=== PATIENT | female | born 1985 | race Caucasian/White ===

== ENCOUNTER 2017-01-29 14:04 | Outpatient (CLI) | payer OTHER ==
[2017-01-29 18:11] LABS: BILIRUBIN,URINE NEGATIVE (NEGATIVE)
[2017-01-29 18:42] LABS: BASOPHILS % (AUTO) 0.3 %; EOSINOPHILS # (AUTO) 0.1 10^3/uL (0.0-0.7); EOSINOPHILS % (AUTO) 1.2 %; HCT - HEMATOCRIT 35.8 % (37.0-47.0); HGB - HEMOGLOBIN 12.3 g/dL (12.0-16.0); LYMPHOCYTES # (AUTO) 1.2 10^3/uL (1.5-3.5); LYMPHOCYTES % (AUTO) 17.7 %; MEAN CORPUSCULAR HEMOGLOBIN 29.5 pg (27.0-31.0); MEAN CORPUSCULAR HGB CONC 34.4 g/dL (32.0-36.0); MEAN CORPUSCULAR VOLUME 85.7 fL (81.0-99.0); MEAN PLATELET VOLUME 8.9 fL (7.9-10.8); MONOCYTES # (AUTO) 0.5 10^3/uL (0.0-1.0); NEUTROPHILS # (AUTO) 5.2 10^3/uL (1.5-6.6); NEUTROPHILS % (AUTO) 73.8 %; RED BLOOD COUNT 4.17 10^6/uL (4.20-5.40); RED CELL DISTRIBUTION WIDTH 12.3 % (12.0-15.0)
[2017-01-29 18:53] LABS: WBC,URINE 0-3 /HPF (0-5)
[2017-01-30 04:01] LABS: TEST RESULT REPORT
== END 2017-01-29 14:05 | disposition home or self-care (01) ==
LOC: LAB.F 14:04
PROVIDERS: ATTEND Obstetrics & Gynecology
DX: Z36.9 Encounter for antenatal screening, unspecified (principal); Z11.3 Encounter for screening for infections with a predominantly sexual mode of transmission
CPT/HCPCS: 36415; 81001; 81599; 85025; 86592; 86762; 86850; 86900; 86901; 87340; 87389; 87491; 87591

== ENCOUNTER 2017-02-23 11:48 | Outpatient (CLI) | payer SELFPAY | END 2017-02-23 11:49 | disposition home or self-care (01) | LOC: LAB 11:48 | DX: Z13.79 Encounter for other screening for genetic and chromosomal anomalies (principal) | CPT/HCPCS: 36415 ==

== ENCOUNTER 2017-04-19 12:13 | Outpatient (CLI) | payer BC, OTHER ==
--- NOTE | 2017-04-20 09:09 | Ultrasound Report ---
OB ULTRASOUND: 04/19/2017 CLINICAL INDICATION: anatomy. TECHNIQUE: Real-time scanning was performed with key account representative static images obtained. LAST MENSTRUAL PERIOD: Clinical Age: US Age: EFW Hadlock: EFW% Hadlock: Heart Rate: EDC: US EDC: BPD Hadlock: HC Hadlock: AC Hadlock: FL Hadlock: Presentation: Placental Location: Cervical Length: Amniotic Fluid: 11/27/2016 20 weeks 3 days 20weeks 5 days 368 grams 57 152 bpm 09/03/2017 09/01/2017 21 weeks 1 day Mean mm 50.2 20 weeks 4 days Mean mm 182.1 20 weeks 5 days Mean mm 155.0 20 weeks 4 days Mean mm 33.7 variable posterior 3.2 cm Subjectively normal FINDINGS: There is a single viable intrauterine gestation, in variable position. heart rate is 152 BPM. The placenta is posterior. There is a marginal cord insertion into the placenta. This should be followed up in the third trimester. No previa or abruption is identified. Amniotic fluid volume is subjectively normal, with the deepest pocket of 4.1 cm. By size, the fetus measures 20 weeks 5 days (20 weeks 3 days per dating on the order). The following anatomic structures were visualized and appear normal: The intracranial contents, including the ventricles and posterior fossa; the lips and orbits; the spine; the heart, including 4 chamber view and outflow tracts, and diaphragm; the abdominal contents, including the stomach, the bilateral kidneys, and urinary bladder, as well as a normal 3 vessel cord insertion; 4 limbs. No free fluid or adnexal lesion is appreciated. IMPRESSION: SINGLE VIABLE INTRAUTERINE GESTATION, WITH SIZE IN KEEPING WITH DATING PROVIDED ON THE ORDER. NORMAL ANATOMIC SURVEY. MARGINAL CORD INSERTION INTO THE PLACENTA. THIS SHOULD BE REEVALUATED IN THE THIRD TRIMESTER. MTDD
== END 2017-04-19 12:14 | disposition home or self-care (01) ==
LOC: DI 12:13
PROVIDERS: ATTEND Obstetrics & Gynecology
DX: Z36.9 Encounter for antenatal screening, unspecified (principal)
CPT/HCPCS: 76811

== ENCOUNTER 2017-05-25 09:25 | Outpatient (CLI) | payer BC ==
[2017-05-25 10:53] LABS: HGB - HEMOGLOBIN 11.1 g/dL (12.0-16.0); MEAN CORPUSCULAR HEMOGLOBIN 30.7 pg (27.0-31.0); MEAN CORPUSCULAR HGB CONC 35.6 g/dL (32.0-36.0); MEAN CORPUSCULAR VOLUME 86.3 fL (81.0-99.0); MEAN PLATELET VOLUME 7.9 fL (7.9-10.8); RED BLOOD COUNT 3.63 10^6/uL (4.20-5.40); RED CELL DISTRIBUTION WIDTH 13.3 % (12.0-15.0); WHITE BLOOD COUNT 8.8 x10^3/uL (4.8-10.8)
== END 2017-05-25 09:26 | disposition home or self-care (01) ==
LOC: LAB 09:25
PROVIDERS: ATTEND Obstetrics & Gynecology
DX: Z34.90 Encounter for supervision of normal pregnancy, unspecified, unspecified trimester (principal)
CPT/HCPCS: 36415; 82950; 86850

== ENCOUNTER 2017-06-08 08:20 | Outpatient (CLI) | payer BC ==
--- NOTE | 2017-06-09 16:07 | Ultrasound Report ---
OB FOLLOWUP: 06/08/2017 CLINICAL INDICATION: Check cord insertion into placenta and growth. TECHNIQUE: Real-time scanning was performed with guest services representative static images obtained. LAST MENSTRUAL PERIOD: 11/27/2016 Clinical Age: 27 weeks 4 days US Age: 28 weeks 6 days EFW Hadlock: 1250 grams EFW% Hadlock: 66% Heart Rate: 142 bpm EDC: 09/03/2017 US EDC: 08/25/2017 BPD Hadlock: 30 weeks 2 days; Mean mm 75 HC Hadlock: 28 weeks 0 days; Mean mm 270 AC Hadlock: 29 weeks 0 days; Mean mm 247 FL Hadlock: 27 weeks 2 days; Mean mm 50 Presentation: gavino breech Placental Location: posterior/fundal Cervical Length: 4.0 cm Amniotic Fluid: JORGE 21.0 cm; MVP 6.1 cm FINDINGS: There is a single viable intrauterine gestation, in breech presentation. heart rate is 142 BPM. The placenta is posterior to fundal. Previously seen marginal cord insertion has resolved. Amniotic fluid volume is normal, with an JORGE of 21.0. By size, the fetus measures 28 weeks 6 days (27 weeks 4 days by office dating). Estimated weight by Hadlock method is 1250 grams. No free fluid or adnexal lesion is identified. IMPRESSION: SINGLE VIABLE INTRAUTERINE GESTATION, WITH EXPECTED GROWTH. RESOLUTION OF PREVIOUSLY SEEN MARGINAL CORD INSERTION. TD: 06/08/2017 10:20 MTDD
== END 2017-06-08 08:21 | disposition home or self-care (01) ==
LOC: DI 08:20
PROVIDERS: ATTEND Obstetrics & Gynecology
DX: Z36.2 Encounter for other antenatal screening follow-up (principal); Z3A.28 28 weeks gestation of pregnancy
CPT/HCPCS: 76816

== ENCOUNTER 2017-08-03 08:00 | Outpatient (CLI) | payer BC | END 2017-08-03 08:01 | disposition home or self-care (01) | LOC: LAB.R 08:00 | PROVIDERS: ATTEND Obstetrics & Gynecology | DX: Z36.9 Encounter for antenatal screening, unspecified (principal) | CPT/HCPCS: 87077; 87081 ==

== ENCOUNTER 2017-08-26 10:55 | Inpatient (IN) | payer BC ==
[2017-08-26] MEDS ORDERED: fentaNYL 100 MCG/2 ML VIAL IVP PRN (18:22)
[2017-08-26] MEDS ORDERED: PENICILLIN G POTASSIUM 5,000,000 UNIT in SODIUM CHLORIDE 0.9% MINIBAG 100 ML IV ONE (18:22)
[2017-08-26] MEDS ORDERED: ONDANSETRON 4 MG/2 ML VIAL IVP PRN ×2 (18:22→23:35)
--- NOTE | 2017-08-26 18:43 | PROVIDER PROGRESS NOTE ---
Labor Progress Note - Uterine Monitoring Uterine Monitoring Mode: positive: Palpation Contraction Frequency (min/apart): q3mn Contraction Intensity: positive: Mild to moderate Uterine Resting Tone: positive: Soft - Monitoring Monitor Mode: positive: External ultrasound Heart Rate Baseline: 125-130 Heart Rate Variability: positive: Moderate (6-25 bmp) Accelerations: positive: Present, 15x15 Decelerations: positive: None Strip Review: positive: Category I - Vaginal Exam Dilation (in cm): 5 Effacement (%): 90% Station: 0 Cervical Position: Anterior - Labor Progress Note Labor Progress Note/Additional Text: Patient is a term primigravida who is making forward progress with both dilation and descent. External monitor tracking is category 1. Anticipate pelvis to be adequate for size of fetus. Patient will require GBS prophylaxis.
[2017-08-26] MEDS: LACTATED RINGERS 1,000 ML IV SCH ×3 (19:00→22:13)
[2017-08-26] MEDS ORDERED: ACETAMINOPHEN 325 MG TABLET PO SCH (19:00)
[2017-08-26 19:08] LABS: BASOPHILS % (AUTO) 0.3 %; EOSINOPHILS % (AUTO) 0.7 %; HGB - HEMOGLOBIN 13.5 g/dL (12.0-16.0); LYMPHOCYTES % (AUTO) 12.6 %; MEAN CORPUSCULAR HEMOGLOBIN 29.4 pg (27.0-31.0); MEAN CORPUSCULAR HGB CONC 33.4 g/dL (32.0-36.0); MEAN CORPUSCULAR VOLUME 88.1 fL (81.0-99.0); MEAN PLATELET VOLUME 9.3 fL (7.9-10.8); MONOCYTES % (AUTO) 7.9 %; NEUTROPHILS % (AUTO) 78.5 %; PLT - PLATELET COUNT 206 10^3/uL (130-450); RED BLOOD COUNT 4.59 10^6/uL (4.20-5.40); RED CELL DISTRIBUTION WIDTH 14.2 % (12.0-15.0); WHITE BLOOD COUNT 13.5 x10^3/uL (4.8-10.8)
[2017-08-26 19:09] LABS: ABNORMAL LYMPHS % (MANUAL) 0 %
[2017-08-26 19:23] LABS: BAND NEUTROPHILS % (MANUAL) 2 %; LYMPHOCYTES # (MANUAL) 1.9 10^3/uL (1.5-3.5); LYMPHOCYTES % (MANUAL) 14 %; MONOCYTES # (MANUAL) 0.8 10^3/uL (0.0-1.0); NEUTROPHILS # (MANUAL) 10.8 10^3/uL (1.5-6.6); NEUTROPHILS % (MANUAL) 78 %
[2017-08-26 19:24] LABS: DIFFERENTIAL COMMENT MANUAL DIFFERENTIAL; PLATELET ESTIMATE, MANUAL NORMAL (130-450,000) (NORMAL); PLATELET MORPHOLOGY NORMAL APPEARANCE (NORMAL); RBC MORPHOLOGY (MULTIPLE) 1+ POLYCHROMASIA (NORMAL)
--- NOTE | 2017-08-26 19:24 | HISTORY & PHYSICAL EXAMINATION ---
DATE OF SERVICE: 08/26/2017 Physician: Silas Stone MD DIAGNOSES 1. Term , 38 weeks 6 days. 2. Labor. 3. Group B streptococcus (GBS) maternal colonization. HISTORY OF PRESENT ILLNESS: The patient is a 31-year-old , 1, para 0-0-1-0 (EAB x1) woman, at 38 weeks 6 days gestation based on an EDC of 09/03/2017, calculated from an 4-asaw-8-day crown-rump length on 01/28/2017, which was consistent with the LMP of 11/23/2016. [facility] with a total [facility] 11 [facility]. During her care, the patient was thought to have a marginal cord insertion, but had a normal growth. The patient had [place] testing that showed a normal karyotype male fetus. Reference records. Basic labs showed blood type to be B-positive, antibody screen negative, GC and chlamydia negative, rubella immune, RPR negative, hepatitis B surface antigen negative, HIV negative, urinalysis negative. Glucola screen normal at 93, GBS positive. The patient reports uterine contractions beginning at 7:30 on 08/25/2017 without leakage of urine. Overtime, the contractions waxed and waned, but became more regular and intense by 10 a.m. today, 08/26/2017. This prompted the patient to come for evaluation. She does not believe she is leaking fluid. There are no signs or symptoms of preeclampsia. She has had no recent illness or fever. PAST MEDICAL HISTORY: Healthy. No chronic disease history. PAST SURGICAL HISTORY: Appendectomy in 2005. FAMILY HISTORY: No inheritable diseases or aneuploidy; positive for depression and hypertension. The patient does have a Christianity lineage. ALLERGIES: NONE. MEDICATIONS: vitamins and iron. SOCIAL HISTORY: Bachelor's degree. [employer] recreation facility manager. No drug, tobacco or alcohol use. REVIEW OF SYSTEMS CONSTITUTIONAL: Negative. CARDIOVASCULAR: Negative. PULMONARY: Negative. GASTROINTESTINAL: Negative. GENITOURINARY: Reference HPI and records; essentially normal. MUSCULOSKELETAL: Negative. DERMATOLOGIC: Negative. NEUROLOGIC: Negative. PSYCHIATRIC/PSYCHOLOGY: Normal. PHYSICAL EXAMINATION GENERAL: The patient is uncomfortable, sitting on a birthing ball. VITAL SIGNS: Temperature 98.4, pulse 98, blood pressure 102/65, respirations 18 , oxygen sat 98. HEENT: Nonicteric sclerae. EOMI. Dentition in good repair. NECK: Supple neck. No thyromegaly. LUNGS: Clear to auscultation. CARDIOVASCULAR: Regular. No murmur, no gallop. BREASTS: Deferred. No SBE findings reported. ABDOMEN: Nondistended. No hepatosplenomegaly. PELVIC: Uterus is appropriate for dates, with q.3-minute to 4-minute moderate contractions. Normal resting tone. No tenderness. Estimated weight at or about 7 to 7- 1/2 pounds. Vertex GENITALIA: External genitalia, no lesions. VAGINA: No blood or discharge. CERVIX: 5 cm, 100%, 0 station. Bag of kothari intact. HEART TONES: External heart tones, category 1, baseline 125-135, moderate variability, no decelerations. NEUROLOGIC: Grossly intact. Patellar reflexes 2+. LABORATORY DATA: Labs are pending. ASSESSMENT: The patient with a 61-tslm-5-day gestation, who is in labor and progressing towards the active phase. Her bag of kothari is intact. She will require penicillin prophylaxis for known group B streptococcus colonization. Overall impression is an adequate pelvis with a 7-pound fetus. No concerns about well being. PLAN 1. Continue supportive care. 2. Epidural. 3. Penicillin prophylaxis. 4. Anticipate vaginal delivery. TD: 08/26/2017 18:53 MTDD
[2017-08-26] MEDS ORDERED: fent/BUPIV 2 MCG/0.125% 250 ML EP ONE (19:29)
[2017-08-26] MEDS: SODIUM CHLORIDE FLUSH 0.9% 10 ML SYRINGE IVP PRN (19:55)
[2017-08-26] MEDS ORDERED: BUPIVACAINE 0.25% PF 10 ML VIAL ONE (19:55)
[2017-08-26] MEDS: SODIUM CHLORIDE FLUSH 0.9% 10 ML SYRINGE IVP SCH ×2 (20:03→23:38)
--- NOTE | 2017-08-26 22:46 | PROVIDER PROGRESS NOTE ---
Labor Progress Note - Uterine Monitoring Contraction Frequency (min/apart): q 4-5 min Contraction Intensity: positive: Mild Uterine Resting Tone: positive: Soft - Monitoring Monitor Mode: positive: External ultrasound Heart Rate Baseline: 130 Heart Rate Variability: positive: Moderate (6-25 bmp) Accelerations: positive: Present, 15x15 Decelerations: positive: None Strip Review: positive: Category I - Vaginal Exam Dilation (in cm): 6 Effacement (%): 90% Station: 0 Cervical Position: Anterior - Labor Progress Note Labor Progress Note/Additional Text: Radha is comfortable with epidural. Hydration has decreased contraction intensity & frequency. First dose of PCN in.
[2017-08-26] MEDS ORDERED: OXYTOCIN/SODIUM CHLORIDE 500 ML IV SCH (23:00)
[2017-08-26] MEDS ORDERED: NALBUPHINE 10 MG/ML AMP IVP PRN (23:35)
[2017-08-26] MEDS ORDERED: fent/BUPIV 2 MCG/0.125% 250 ML EP PRN (23:35)
[2017-08-26] MEDS ORDERED: LACTATED RINGERS 500 ML IV ONE (23:35)
[2017-08-26] MEDS ORDERED: NALOXONE 0.4 MG/ML VIAL IVP PRN (23:35)
[2017-08-26] MEDS ORDERED: ePHEDrine 50 MG/ML VIAL IVP PRN (23:35)
[2017-08-26] MEDS: OXYTOCIN/SODIUM CHLORIDE 500 ML IV SCH (23:37)
[2017-08-26] MEDS: PENICILLIN G POTASSIUM 2,500,000 UNIT in SODIUM CHLORIDE 0.9% 100ML 100 ML IV SCH (23:51)
[2017-08-27] MEDS: PENICILLIN G POTASSIUM 2,500,000 UNIT in SODIUM CHLORIDE 0.9% 100ML 100 ML IV SCH (03:58)
--- NOTE | 2017-08-27 05:10 | PROVIDER PROGRESS NOTE ---
Labor Progress Note - Uterine Monitoring Uterine Monitoring Mode: positive: External toco, IUPC Contraction Frequency (min/apart): q 4-5 min Contraction Intensity: positive: Mild Uterine Resting Tone: positive: Soft - Monitoring Monitor Mode: positive: External ultrasound Heart Rate Baseline: 130-135 Heart Rate Variability: positive: Moderate (6-25 bmp) Accelerations: positive: Present, 15x15 Decelerations: positive: Early Strip Review: positive: Category I - Vaginal Exam Dilation (in cm): 6 Effacement (%): 100% Station: 0 Cervical Position: Anterior - Labor Progress Note Labor Progress Note/Additional Text: The tempo & intensity of the contractions decreased and forward progression of dilatation & descent has slackened. Pitocin augmentation continues though at 3: 00 am the drip rate was decreased back to 1 because of concerns about variable decelerations. In my examination, the strip the variables are not worrisome. To allow more effective management of Pitocin IUPC was placed. Patient's pain relief remains adequate with epidural. I anticipate an increased rate of dilatation and descent. Clinically I believe the pelvis adequate for 7.5 pound infant fetus.
[2017-08-27] MEDS: LACTATED RINGERS 1,000 ML IV SCH ×3 (05:34→18:03)
--- NOTE | 2017-08-27 06:58 | PROVIDER PROGRESS NOTE ---
Labor Progress Note - Uterine Monitoring Uterine Monitoring Mode: positive: IUPC Contraction Frequency (min/apart): 3 min Contraction Intensity: positive: Mild to moderate Uterine Resting Tone: positive: Soft Other Uterine Monitoring: inadequate w 2.5 m units - Monitoring Heart Rate Baseline: 130 Heart Rate Variability: positive: Moderate (6-25 bmp) Accelerations: positive: Present, 10x10 (=/32 wks) Decelerations: positive: None Strip Review: positive: Category I - Vaginal Exam Dilation (in cm): 9 cm Effacement (%): 100% Station: 1 Cervical Position: Anterior - Labor Progress Note Labor Progress Note/Additional Text: Instructed nurse to advance Pit by 2 m units, The nursing advancment of the drip has been to timid
--- NOTE | 2017-08-27 08:12 | PROVIDER PROGRESS NOTE ---
Labor Progress Note - Uterine Monitoring Uterine Monitoring Mode: positive: IUPC Contraction Frequency (min/apart): Every 3 minutes Contraction Intensity: positive: Moderate Uterine Resting Tone: positive: Soft Other Uterine Monitoring: IUPC in place. Baseline approximately 20 peak pressures 60-70; borderline [place] units - Monitoring Monitor Mode: positive: External ultrasound Heart Rate Baseline: 130 Heart Rate Variability: positive: Moderate (6-25 bmp) Accelerations: positive: Present, 15x15 Decelerations: positive: None, Early Strip Review: positive: Category I - Vaginal Exam Dilation (in cm): 10 cm Effacement (%): 100% effaced Station: 3 Cervical Position: Anterior - Labor Progress Note Labor Progress Note/Additional Text: Patient is reached completion and is ready to push. Epidural is been turned off.
[2017-08-27] MEDS ORDERED: LIDOCAINE JELLY 2% 5 ML TUBE TOP ONE (09:19)
[2017-08-27] MEDS ORDERED: MINERAL OIL LIGHT 10 ML MC ONE (09:54)
[2017-08-27] MEDS ORDERED: MINERAL OIL ENEMA 133 ML BOTTLE RC ONE (10:00)
[2017-08-27] MEDS ORDERED: PENICILLIN G POTASSIUM 2,500,000 UNIT in SODIUM CHLORIDE 0.9% 100ML 100 ML IV SCH (10:00)
[2017-08-27] MEDS ORDERED: LIDOCAINE 1% 50 ML MDV ONE (10:04)
[2017-08-27] MEDS: SODIUM CHLORIDE FLUSH 0.9% 10 ML SYRINGE IVP SCH ×3 (10:41→21:48)
[2017-08-27] MEDS ORDERED: miSOPROStol 200 MCG TABLET PR ONE (11:07)
[2017-08-27] MEDS ORDERED: diphenhydrAMINE 25 MG CAPSULE PO PRN (11:26)
[2017-08-27] MEDS ORDERED: ZOLPIDEM 5 MG TABLET PO PRN (11:26)
[2017-08-27] MEDS ORDERED: OXYTOCIN/SODIUM CHLORIDE 250 ML IV ONE (11:26)
[2017-08-27] MEDS ORDERED: HYDROmorphone 2 MG/ML VIAL IVP PRN (11:35)
--- NOTE | 2017-08-27 11:41 | DELIVERY NOTE ---
Delivery Note - Labor Labor: positive: Augmented by oxytocin - Delivery Method Delivery Method: positive: Vacuum assist - Presentation Presentation: positive: Vertex, MARLI - left occiput anterior - Nuchal Cord Nuchal Cord: positive: None (Administer tight nuchal cord 1; factor in the delivery,) - Anesthetic Anesthetic Type: Anesthetic: positive: Lidocaine - 1% plain Volume: positive: Other (20 cc) - Amniotic Fluid Description Amniotic Fluid Description: positive: Clear - Vacuum Use Indication for Vacuum Use: positive: Shortening of 2nd stage for maternal benefit Type of Vacuum Cup: positive: Cup: Rigid Vacuum Extraction: positive: Successful Number of pop-offs: 1 - Episiotomy Type Episiotomy Type: positive: None - Laceration Laceration: positive: 4th degree, Vaginal - Suture Suture Type: positive: Vicryl (Rectal repair 2 layers 4-0 Vicryl; external sphincter repair 6 stitches 3-0 Vicryl to reapproximate the muscle; 8 stitches 3 -0 Vicryl to reapproximate and reconstruct the capsule.; [place] stitch 2-0 Vicryl; skin interrupted stitches of 4-0 Vicryl) - Delivery Outcome Delivery Outcome: positive: Livebirth - [place]: positive: Placed in direct skin contact with mother, Ages [place] used sex: positive: Male - Cord Cord: positive: 3 vessels, Other (Tight nuchal cord as noted above) - Placenta Placenta: positive: Intact - Estimated Blood Loss Estimated Blood Loss (in cc): 700 - Post Delivery Events Post Delivery Events: positive: Shoulder dystocia (Shoulder dystocia requiring Lily maneuver and suprapubic pressure to resolve; 1 minute Titus total duration of dystocia) - Delivery Comments (Free Text/Narrative) Delivery Comments (Free Text/Narrative): Living male infant weighing 3217 g or 7 pounds 1.4 ounce, Apgars /. Complete 0803 hrs. Begin pushing at 0814 hrs. Delivery 09 58 Placenta out 1105
[2017-08-27] MEDS ORDERED: IBUPROFEN 600 MG TABLET PO SCH (12:00)
[2017-08-27] MEDS: oxyCODONE 5 MG TABLET PO PRN ×2 (12:21→16:53)
--- NOTE | 2017-08-27 13:57 | OPERATIVE REPORT ---
DATE OF SERVICE: 08/27/2017 Physician: Silas Stone MD PREDELIVERY DIAGNOSES 1. A 38-week gestation, in labor. 2. Pitocin augmentation for prolonged active phase. 3. Maternal fatigue, prompting vacuum delivery. 4. Group B streptococcus, maternal colonization. POSTDELIVERY DIAGNOSES 1. Shoulder dystocia requiring Lily maneuver to resolve. 2. Fourth-degree laceration, uneventfully repaired. 3. Nuchal cord 1, tight 4. Pitocin augmentation for prolonged active phase. 5. Maternal fatigue, prompting vacuum delivery. 6. Group B streptococcus, maternal colonization. 7. A 38-week gestation, in labor. PROCEDURE 1. Vaginal delivery over an intact perineum; 2. Low vacuum delivery with 20 degrees of rotation; 3. Repair of 4th-degree laceration. FINANCIAL COMPLIANCE MANAGER: Silas Stone MD, FACOG, FICS ANESTHESIA: Tahmina Pretty CRNA ANESTHESIA TYPES 1. Epidural. 2. Lidocaine 1% plain local, 20 mL (Dr. Stone). 3. Nitrous oxide (Dr. Stone). COMPLICATIONS 1. Shoulder dystocia. 2. A 4th-degree laceration. ESTIMATED BLOOD LOSS: 700 - 1100 mL. DRAINS: Leal, with clear urine in the bag. FINDINGS: Patient achieved completion around 0803 a.m. Patient began pushing at 0814 a.m. At 0958, a living male infant was born weighing 3217 g, 7 pounds 1.4 ounces, and scoring Apgars 7/9. There was clear, nonfoul fluid at the time of . There was no obvious trauma or congenital anomaly. Placenta was delivered intact with a 3-vessel cord at 11:05 AM. Placenta had no evidence of abruption or infection. There was a tight nuchal cord that needed to be transected to affect delivery. Cord blood sample was sent. Cord gases were harvested, but not sent, because of good Apgars. Inspection finds the cervix to be intact. There is a 3.5 cm vaginal laceration. The vaginal laceration extends through the perineal body, external anal sphincter complex, and into the rectum. The total length of the rectal tear was 2.5 cm. Postsurgical exam finds no rectal defects or errant stitches. TECHNIQUE: The patient pushed with excellent effort for roughly an hour and 30 minutes and began to experience fatigue. The head was at +2 station with a moderate amount of caput, and slightly MARLI by about 20 degrees. After informed consent discussion , patient gave verbal permission to apply a vacuum. The vacuum was pumped to the green zone, and an appropriate amount of pressure applied in respect to the pelvic bony architecture. The head did move down approximately a centimeter. Popoff occurred. On the next 2 contractions, the Kiwi was reapplied to the flexion point and pumped to the green zone. Upon delivery of the head, it retracted against the perineum. The part of the retraction was thought to be due to a tight nuchal cord, which was doubly clamped and transected. The shoulders were not easily delivered. The OR nursing staff then began with a Lily maneuver, which did not resolve the shoulder dystocia. Next, the bed was lowered and suprapubic pressure applied, which did resolve the shoulder. From the extended pushing, the perineal tissue was fragile, and the posterior shoulder resulted in a deep laceration in the midline. was laid on the maternal abdomen for [id number] contact. responded well to stimulation. Prior to doing the repair, the perineal area was washed with Hibiclens solution. There was no stool contaminating the wound or surgical field. We chose to allow the placenta to stay intact so we could affect visualization of the obstetric laceration. Extra nursing help was requested and special instruments. Gelpi retractor was used to gain visualization. Ying Pina, senior OB nurse, was then used as a surgical scheduler. Patient was very calm, and analgesia was deep. Additional 20 mL of lidocaine local was placed. Patient did have some lateral thigh pain, and massage and trigger point injection with 5 mL of lidocaine 1% was done. Additionally nitrous oxide inhalation analgesia was also used. The rectal defect was closed, first with a running stitch of 4-0 Vicryl. Next an imbricating layer of 4-0 Vicryl was placed. After this, care was taken to identify the external anal sphincter. ES muscle was brought together with Allis clamps. The muscle ends were then overlapped approximately 0.5 cm and tacked together with 6 sutures of 3-0 Vicryl. Next the capsule was reconstructed with 8 interrupted stitches of 3-0 Vicryl. ES repair shored up the rectum. Next the vaginal tube was reconstructed with a running interlocked stitch of 2- 0 Vicryl. Care was taken to reapproximate the hymenal ring. Fisher stitches were placed with 2-0 Vicryl. The deep space was closed with additional stitches of 2-0 Vicryl. Skin was closed with interrupted vertical mattress stitches of 4-0 Vicryl. Final check of the vagina showed no retained sponges or material. Rectal exam found no defects, and the 4th-degree laceration repair was complete. After completing the laceration repair, the placenta was uneventfully delivered with the aid of Crede maneuver. Initially, the blood loss was brisk, and 400 mcg of Cytotec was administered in the rectum. The uterus firmed up nicely. The patient's perineum was washed again with Betadine and rinsed and then patted dry. Leal catheter was inserted for bladder rest. Ice pack was placed. I reviewed the delivery events with the patient and her . Patient understands the need for a high-fiber diet and pelvic rest. She is to expect to remain within the hospital for probably 2 days postoperative, or at the time of the first successful bowel movement. The details of this case will be discussed with Dr. Angulo, drapery inspector salon leader for this weekend. TD: 08/27/2017 12:27 Revised: Date of Service correction done 09/02/2017 arden orig. date signed 09/01/2017 @1118 MTDD
[2017-08-27] MEDS: HYDROCORTISONE/PRAMOXINE 10 GM PR PRN (15:19)
[2017-08-27] MEDS ORDERED: fentaNYL 100 MCG/2 ML VIAL IVP SCH (16:36)
[2017-08-27] MEDS ORDERED: FERRIC GLUCONATE 125 MG in SODIUM CHLORIDE 0.9% 100ML 100 ML IV ONE (17:30)
[2017-08-27] MEDS: ACETAMINOPHEN 500 MG TABLET PO SCH (17:54)
[2017-08-27] MEDS: CELECOXIB 100 MG CAPSULE PO SCH (17:54)
[2017-08-27] MEDS: SODIUM CHLORIDE FLUSH 0.9% 10 ML SYRINGE IVP PRN (20:32)
[2017-08-27] MEDS: DOCUSATE SODIUM 100 MG CAPSULE PO SCH (20:51)
[2017-08-27] MEDS: oxyCODONE 5 MG TABLET PO SCH (20:52)
[2017-08-27] MEDS: WITCH HAZEL/GLYCERIN 1 EACH MED..PAD TOP PRN (20:54)
[2017-08-28] MEDS: oxyCODONE 5 MG TABLET PO SCH ×6 (00:44→23:00)
[2017-08-28] MEDS: SODIUM CHLORIDE FLUSH 0.9% 10 ML SYRINGE IVP PRN ×5 (00:45→20:00)
[2017-08-28] MEDS: ACETAMINOPHEN 500 MG TABLET PO SCH ×3 (02:33→18:53)
[2017-08-28] MEDS: CELECOXIB 100 MG CAPSULE PO SCH ×2 (05:34→18:52)
[2017-08-28 07:16] LABS: BASOPHILS % (AUTO) 0.3 %; EOSINOPHILS # (AUTO) 0.1 10^3/uL (0.0-0.7); EOSINOPHILS % (AUTO) 0.8 %; LYMPHOCYTES # (AUTO) 1.9 10^3/uL (1.5-3.5); LYMPHOCYTES % (AUTO) 15.3 %; MEAN CORPUSCULAR HEMOGLOBIN 29.7 pg (27.0-31.0); MEAN CORPUSCULAR VOLUME 89.9 fL (81.0-99.0); MEAN PLATELET VOLUME 8.3 fL (7.9-10.8); MONOCYTES # (AUTO) 1.2 10^3/uL (0.0-1.0); MONOCYTES % (AUTO) 9.6 %; NEUTROPHILS # (AUTO) 9.4 10^3/uL (1.5-6.6); PLT - PLATELET COUNT 166 10^3/uL (130-450); RED BLOOD COUNT 1.91 10^6/uL (4.20-5.40); RED CELL DISTRIBUTION WIDTH 14.1 % (12.0-15.0); WHITE BLOOD COUNT 12.7 x10^3/uL (4.8-10.8)
[2017-08-28 07:18] LABS: HGB - HEMOGLOBIN 5.7 g/dL (12.0-16.0)
[2017-08-28 08:54] LABS: PLATELET ESTIMATE, MANUAL NORMAL (130-450,000) (NORMAL); PLATELET MORPHOLOGY 1+ LARGE PLATELETS (NORMAL); RBC MORPHOLOGY (MULTIPLE) NORMAL APPEARANCE (NORMAL)
[2017-08-28 08:55] LABS: DIFFERENTIAL COMMENT MANUAL=AUTO DIFF
[2017-08-28] MEDS ORDERED: LACTULOSE 10 GM /15 ML UDC PO SCH (09:00)
[2017-08-28] MEDS: DOCUSATE SODIUM 100 MG CAPSULE PO SCH ×2 (09:18→21:00)
[2017-08-28] MEDS: LACTATED RINGERS 1,000 ML IV SCH ×3 (09:41→09:44)
[2017-08-28] MEDS: OXYTOCIN/SODIUM CHLORIDE 500 ML IV SCH (09:42)
[2017-08-28] MEDS ORDERED: diphenhydrAMINE 25 MG CAPSULE PO SCH (11:00)
--- NOTE | 2017-08-28 12:08 | PROVIDER PROGRESS NOTE ---
Subjective - Prog Note Date Prog Note Date: 08/28/17 Prog Note Time: 12:06 - Subjective Subjective: Patient lying in bed, holding the baby. Receiving 2nd unit of PRBC. at bedside, very helpful. Radha notes her pain is 0 when she is not moving. Will get to 3-4/10 when she rotates in bed. Radha has been on strict bedrest, gagnon catheter in-situ, SCD's on lower extremities. Happy so far with pain regimen of Celebrex, tylenol, oxycodone routinely. Recalls dilaudid made her sleep and did not like it. Had very bad pain in lateral right leg yesterday. This pain was worse than the labor itself. Objective - Vital Signs/Intake & Output Reviewed Vital Signs: Yes Vital Signs: Vital Signs x48h Temp Pulse Pulse Resp BP BP Pulse Ox 08/28/17 10:28 98.2 F 103 H 18 119/61 08/28/17 10:13 97.7 F 97 16 108/53 L 08/28/17 09:00 98.2 F 110 H 16 124/66 08/28/17 08:44 98.2 F 114 H 16 125/70 08/28/17 08:15 100 08/28/17 07:26 98.2 F 91 18 108/59 L 97 08/28/17 04:10 98.2 F 103 H 16 115/56 L 99 Intake & Output: Intake & Output 08/25/17 08/26/17 08/27/17 08/28/17 23:59 23:59 23:59 23:59 Intake Total 582.5 3472.5 1830 Output Total 1775 3950 Balance 582.5 1697.5 -2120 - Objective General Appearance: positive: No acute distress Eyes Bilateral: positive: Normal inspection Abdomen: positive: Non-tender (Firm fundus) Skin: positive: Color nml Neurologic/Psychiatric: positive: Oriented x3 - Lab Results Fish Bones: 08/28/17 06:02 Other Labs: Lab Results x24hrs 08/28/17 08/26/17 Range/Units 06:02 18:58 WBC 12.7 H (4.8-10.8) x10^3/uL RBC 1.91 L (4.20-5.40) 10^6/uL Hgb 5.7 L* (12.0-16.0) g/dL Hct 17.2 L* (37.0-47.0) % MCV 89.9 (81.0-99.0) fL MCH 29.7 (27.0-31.0) pg MCHC 33.0 (32.0-36.0) g/dL RDW 14.1 (12.0-15.0) % Plt Count 166 (130-450) 10^3/uL MPV 8.3 (7.9-10.8) fL Neut # (Auto) 9.4 H (1.5-6.6) 10^3/uL Lymph # (Auto) 1.9 (1.5-3.5) 10^3/uL Antelope # (Auto) 1.2 H (0.0-1.0) 10^3/uL Eos # (Auto) 0.1 (0.0-0.7) 10^3/uL Baso # (Auto) 0.0 (0.0-0.1) 10^3/uL Absolute Nucleated RBC 0.00 x10^3/uL Band Neuts % (Manual) Not Reportable Abnorm Lymph % (Manual) Not Reportable Nucleated RBC % 0.0 /100WBC Neutrophils # (Manual) Not Reportable Lymphocytes # (Manual) Not Reportable Monocytes # (Manual) Not Reportable Eosinophils # (Manual) Not Reportable Basophils # (Manual) Not Reportable Differential Comment MANUAL=AUTO DIFF Platelet Estimate NORMAL (130-450,000) (NORMAL) Platelet Morphology 1+ LARGE PLATELETS (NORMAL) RBC Morph Micro Appear NORMAL APPEARANCE (NORMAL) Blood Type B POSITIVE Antibody Screen NEGATIVE Crossmatch IS Only See Detail Assessment/Plan - Problem List (1) hemorrhage Impression: S/p PPH at the time of delivery. Antepartum 08/26/2017 H/H 13.5/40.4, and 08/28/2017 H/H 5.7/17.2. EBL was noted to be 700 mL. This does not correlate with drop in H/H. Currently the patient is stable, normal lochia, good urine output. Would assume EBL was underestimated. PPH likely from uterine atony and prolonged bleeding from 4th degree laceration. Receiving 2nd of 3 units of PRBC. Will recheck CBC tonight and in the AM. Will remove gagnon catheter after the patient is able to ambulate. S/p iron transfusion 08/27/2017. (2) Vacuum extractor delivery, delivered Impression: 31 yo S/p VAVD for maternal exhaustion. PPD #1. Continue current care with maximization of pain control, miralax and stool softeners. (3) Fourth degree perineal laceration during delivery Impression: Will continue current pain control regimen. Counseled patient to be aggressive on outpatient pain control. Will need full 6-8 weeks to heal this laceration. Will write for Rx oxycodone for home. Would recommend a delivery for future pregnancies to avoid this complication. Will fax Rx motrin, tylenol, colace and miralax to [facility] in [place]. Anticipate home either tomorrow or Wednesday. Labs, EKG, Meds, Allergy - Lab Results Lab results reviewed: Yes Fish Bones: 08/28/17 06:02 Other Lab Results: Lab Results x24hrs 08/28/17 08/26/17 Range/Units 06:02 18:58 WBC 12.7 H (4.8-10.8) x10^3/uL RBC 1.91 L (4.20-5.40) 10^6/uL Hgb 5.7 L* (12.0-16.0) g/dL Hct 17.2 L* (37.0-47.0) % MCV 89.9 (81.0-99.0) fL MCH 29.7 (27.0-31.0) pg MCHC 33.0 (32.0-36.0) g/dL RDW 14.1 (12.0-15.0) % Plt Count 166 (130-450) 10^3/uL MPV 8.3 (7.9-10.8) fL Neut # (Auto) 9.4 H (1.5-6.6) 10^3/uL Lymph # (Auto) 1.9 (1.5-3.5) 10^3/uL Antelope # (Auto) 1.2 H (0.0-1.0) 10^3/uL Eos # (Auto) 0.1 (0.0-0.7) 10^3/uL Baso # (Auto) 0.0 (0.0-0.1) 10^3/uL Absolute Nucleated RBC 0.00 x10^3/uL Band Neuts % (Manual) Not Reportable Abnorm Lymph % (Manual) Not Reportable Nucleated RBC % 0.0 /100WBC Neutrophils # (Manual) Not Reportable Lymphocytes # (Manual) Not Reportable Monocytes # (Manual) Not Reportable Eosinophils # (Manual) Not Reportable Basophils # (Manual) Not Reportable Differential Comment MANUAL=AUTO DIFF Platelet Estimate NORMAL (130-450,000) (NORMAL) Platelet Morphology 1+ LARGE PLATELETS (NORMAL) RBC Morph Micro Appear NORMAL APPEARANCE (NORMAL) Blood Type B POSITIVE Antibody Screen NEGATIVE Crossmatch IS Only See Detail - Allergy Allergy: Allergies Allergy/AdvReac Type Severity Reaction Status Date / Time No Known Drug Allergies Allergy Verified 08/26/17 19:54
[2017-08-28] MEDS: POLYETHYLENE GLYCOL 3350 17 GM PACKET PO PRN (12:10)
[2017-08-28] MEDS: SODIUM CHLORIDE FLUSH 0.9% 10 ML SYRINGE IVP SCH (12:34)
[2017-08-28] MEDS: HYDROCORTISONE/PRAMOXINE 10 GM PR PRN ×2 (18:55→21:20)
[2017-08-28] MEDS: WITCH HAZEL/GLYCERIN 1 EACH MED..PAD TOP PRN (18:55)
[2017-08-28 20:16] LABS: BASOPHILS % (AUTO) 0.2 %; EOSINOPHILS % (AUTO) 0.8 %; HGB - HEMOGLOBIN 8.9 g/dL (12.0-16.0); LYMPHOCYTES % (AUTO) 14.6 %; MEAN CORPUSCULAR HEMOGLOBIN 29.5 pg (27.0-31.0); MEAN CORPUSCULAR HGB CONC 33.7 g/dL (32.0-36.0); MEAN CORPUSCULAR VOLUME 87.4 fL (81.0-99.0); MEAN PLATELET VOLUME 8.4 fL (7.9-10.8); MONOCYTES % (AUTO) 9.3 %; NEUTROPHILS % (AUTO) 75.1 %; PLT - PLATELET COUNT 158 10^3/uL (130-450); RED BLOOD COUNT 3.02 10^6/uL (4.20-5.40); RED CELL DISTRIBUTION WIDTH 14.8 % (12.0-15.0); WHITE BLOOD COUNT 12.7 x10^3/uL (4.8-10.8)
[2017-08-28 20:19] LABS: ABNORMAL LYMPHS % (MANUAL) 0 %
[2017-08-28 20:41] LABS: BAND NEUTROPHILS % (MANUAL) 4 %; DIFFERENTIAL COMMENT MANUAL DIFFERENTIAL; EOSINOPHILS # (MANUAL) 0.1 10^3/uL (0-0.7); LYMPHOCYTES % (MANUAL) 16 %; MONOCYTES # (MANUAL) 0.9 10^3/uL (0.0-1.0); NEUTROPHILS # (MANUAL) 9.7 10^3/uL (1.5-6.6); NEUTROPHILS % (MANUAL) 72 %; PLATELET ESTIMATE, MANUAL NORMAL (130-450,000) (NORMAL); PLATELET MORPHOLOGY NORMAL APPEARANCE (NORMAL); RBC MORPHOLOGY (MULTIPLE) 1+ POLYCHROMASIA (NORMAL)
--- NOTE | 2017-08-29 01:23 | PROVIDER PROGRESS NOTE ---
Subjective - Prog Note Date Prog Note Date: 08/29/17 Prog Note Time: 01:20 - Subjective Subjective: Was called to bedside by OB RN. Concerned about a vaginal clot that would not come out with fundal pressure. Patient has been lying in bed and had gotten up to toilet. Objective - Vital Signs/Intake & Output Vital Signs: Vital Signs x48h Temp Pulse Resp BP Pulse Ox 08/28/17 20:00 98.6 F 101 H 18 107/70 100 Intake & Output: Intake & Output 08/26/17 08/27/17 08/28/17 08/29/17 23:59 23:59 23:59 23:59 Intake Total 582.5 3472.5 3334 Output Total 1775 9075 Balance 582.5 1697.5 -5741 - Objective Abdomen: positive: Non-tender (Firm fundus, benign abdomen.) Comments/Other: Perineum: Small area of ecchymosis (0.5 cm) on inferior left labia majora. 4th degree laceration repair intact. Large mature clot removed from the vagina. No active bleeding. Inguinal-gluteal folds and areas lateral to that are nontender , no masses appreciated. - Lab Results Fish Bones: 08/28/17 20:06 Other Labs: Lab Results x24hrs 08/28/17 08/28/17 08/26/17 Range/Units 20:06 06:02 18:58 WBC 12.7 H 12.7 H (4.8-10.8) x10^3/uL RBC 3.02 L 1.91 L (4.20-5.40) 10^6/uL Hgb 8.9 L 5.7 L* (12.0-16.0) g/dL Hct 26.4 L 17.2 L* (37.0-47.0) % MCV 87.4 89.9 (81.0-99.0) fL MCH 29.5 29.7 (27.0-31.0) pg MCHC 33.7 33.0 (32.0-36.0) g/dL RDW 14.8 14.1 (12.0-15.0) % Plt Count 158 166 (130-450) 10^3/uL MPV 8.4 8.3 (7.9-10.8) fL Neut # (Auto) Not Reportable 9.4 H (1.5-6.6) 10^3/uL Lymph # (Auto) Not Reportable 1.9 (1.5-3.5) 10^3/uL Villalba # (Auto) Not Reportable 1.2 H (0.0-1.0) 10^3/uL Eos # (Auto) Not Reportable 0.1 (0.0-0.7) 10^3/uL Baso # (Auto) Not Reportable 0.0 (0.0-0.1) 10^3/uL Absolute Nucleated RBC Not Reportable 0.00 x10^3/uL Total Counted 100 Band Neuts % (Manual) 4 Not Reportable Abnorm Lymph % (Manual) 0 Not Reportable Nucleated RBC % Not Reportable 0.0 /100WBC Neutrophils # (Manual) 9.7 H Not Reportable Lymphocytes # (Manual) 2.0 Not Reportable Monocytes # (Manual) 0.9 Not Reportable Eosinophils # (Manual) 0.1 Not Reportable Basophils # (Manual) 0.0 Not Reportable Differential Comment MANUAL DIFFERENTIAL MANUAL=AUTO DIFF Manual Slide Review Indicated WBC Morphology NORMAL APPEARANCE (NORMAL) Platelet Estimate NORMAL (130-450,000) NORMAL (130-450,000) (NORMAL) Platelet Morphology NORMAL APPEARANCE 1+ LARGE PLATELETS (NORMAL) RBC Morph Micro Appear 1+ POLYCHROMASIA NORMAL APPEARANCE (NORMAL) Blood Type B POSITIVE Antibody Screen NEGATIVE Crossmatch IS Only See Detail Assessment/Plan - Problem List (1) hemorrhage Impression: Improved. S/p transfusion of 3 units or PRBC. So far, appropriate rise in H/H. No active bleeding at this time. Will recheck CBC in AM. S/p iron transfusion 08/27/2017. No current evidence of pelvic hematoma. (2) Vacuum extractor delivery, delivered Impression: 31 yo S/p VAVD Continue current care (3) Fourth degree perineal laceration during delivery Impression: S/p repair of 4th degree perineal laceration. Continue current care.
[2017-08-29] MEDS: oxyCODONE 5 MG TABLET PO SCH ×5 (03:03→17:48)
[2017-08-29] MEDS: ACETAMINOPHEN 500 MG TABLET PO SCH ×3 (04:36→21:06)
[2017-08-29] MEDS: CELECOXIB 100 MG CAPSULE PO SCH ×2 (07:15→20:08)
[2017-08-29 08:11] LABS: BASOPHILS % (AUTO) 0.1 %; EOSINOPHILS % (AUTO) 1.1 %; HGB - HEMOGLOBIN 8.6 g/dL (12.0-16.0); MEAN CORPUSCULAR HEMOGLOBIN 29.7 pg (27.0-31.0); MEAN CORPUSCULAR HGB CONC 34.3 g/dL (32.0-36.0); MEAN CORPUSCULAR VOLUME 86.5 fL (81.0-99.0); MEAN PLATELET VOLUME 8.1 fL (7.9-10.8); MONOCYTES % (AUTO) 6.9 %; NEUTROPHILS % (AUTO) 77.9 %; PLT - PLATELET COUNT 157 10^3/uL (130-450); RED BLOOD COUNT 2.91 10^6/uL (4.20-5.40); RED CELL DISTRIBUTION WIDTH 15.2 % (12.0-15.0)
[2017-08-29 08:45] LABS: ABNORMAL LYMPHS % (MANUAL) 0 %
[2017-08-29 08:47] LABS: BAND NEUTROPHILS % (MANUAL) 5 %; LYMPHOCYTES # (MANUAL) 1.2 10^3/uL (1.5-3.5); LYMPHOCYTES % (MANUAL) 9 %; MONOCYTES # (MANUAL) 0.7 10^3/uL (0.0-1.0); NEUTROPHILS # (MANUAL) 11.2 10^3/uL (1.5-6.6); NEUTROPHILS % (MANUAL) 81 %
[2017-08-29 08:48] LABS: DIFFERENTIAL COMMENT MANUAL DIFFERENTIAL; PLATELET ESTIMATE, MANUAL NORMAL (130-450,000) (NORMAL); PLATELET MORPHOLOGY NORMAL APPEARANCE (NORMAL)
[2017-08-29] MEDS: DOCUSATE SODIUM 100 MG CAPSULE PO SCH ×2 (09:00→21:06)
[2017-08-29] MEDS: SODIUM CHLORIDE FLUSH 0.9% 10 ML SYRINGE IVP SCH (09:00)
[2017-08-29] MEDS: POLYETHYLENE GLYCOL 3350 17 GM PACKET PO PRN (13:28)
--- NOTE | 2017-08-29 14:30 | PROVIDER PROGRESS NOTE ---
Subjective - Prog Note Date Prog Note Date: 08/29/17 Prog Note Time: 14:23 - Subjective Pt reports feeling: Improved Subjective: Patient lying in bed, breast feeding baby boy Cristian. Pain improving, only taking 1 oxycodone. Lochia decreasing. Did feel dizzy after standing for awhile. Denies nausea, vomiting, fevers and chills. Had first BM after delivery and went better than anticipated. Objective - Vital Signs/Intake & Output Reviewed Vital Signs: Yes Vital Signs: Vital Signs x48h Temp Pulse Resp BP Pulse Ox 08/29/17 08:50 97.9 F 104 H 17 106/87 H 97 Intake & Output: Intake & Output 08/26/17 08/27/17 08/28/17 08/29/17 23:59 23:59 23:59 23:59 Intake Total 582.5 3472.5 3334 1100 Output Total 1775 9075 1825 Balance 582.5 1697.5 -5741 -725 - Objective General Appearance: positive: No acute distress Eyes Bilateral: positive: Normal inspection Abdomen: positive: Non-tender (Benign. Firm fundus.) Neurologic/Psychiatric: positive: Oriented x3 - Lab Results Fish Bones: 08/29/17 07:57 Other Labs: Lab Results x24hrs 08/29/17 08/28/17 Range/Units 07:57 20:06 WBC 13.0 H 12.7 H (4.8-10.8) x10^3/uL RBC 2.91 L 3.02 L (4.20-5.40) 10^6/uL Hgb 8.6 L 8.9 L (12.0-16.0) g/dL Hct 25.2 L 26.4 L (37.0-47.0) % MCV 86.5 87.4 (81.0-99.0) fL MCH 29.7 29.5 (27.0-31.0) pg MCHC 34.3 33.7 (32.0-36.0) g/dL RDW 15.2 H 14.8 (12.0-15.0) % Plt Count 157 158 (130-450) 10^3/uL MPV 8.1 8.4 (7.9-10.8) fL Neut # (Auto) Not Reportable Not Reportable Lymph # (Auto) Not Reportable Not Reportable Mcpherson # (Auto) Not Reportable Not Reportable Eos # (Auto) Not Reportable Not Reportable Baso # (Auto) Not Reportable Not Reportable Absolute Nucleated RBC Not Reportable Not Reportable Total Counted 100 100 Band Neuts % (Manual) 5 4 (0 - 10) % Abnorm Lymph % (Manual) 0 0 % Nucleated RBC % Not Reportable Not Reportable Neutrophils # (Manual) 11.2 H 9.7 H (1.5-6.6) 10^3/uL Lymphocytes # (Manual) 1.2 L 2.0 (1.5-3.5) 10^3/uL Monocytes # (Manual) 0.7 0.9 (0.0-1.0) 10^3/uL Eosinophils # (Manual) 0.0 0.1 (0-0.7) 10^3/uL Basophils # (Manual) 0.0 0.0 (0-0.1) 10^3/uL Differential Comment MANUAL DIFFERENTIAL MANUAL DIFFERENTIAL Manual Slide Review Indicated Indicated WBC Morphology NORMAL APPEARANCE (NORMAL) Platelet Estimate NORMAL (130-450,000) NORMAL (130-450,000) (NORMAL) Platelet Morphology NORMAL APPEARANCE NORMAL APPEARANCE (NORMAL) RBC Morph Micro Appear 1+ POLYCHROMASIA 1+ POLYCHROMASIA (NORMAL) Assessment/Plan - Problem List (1) hemorrhage Impression: S/p primary PPH, resolved S/p 08/27/2017 iron transfusion S/p 08/28/2017 3 units PRBC Normal recovery Discontinue saline lock Anticipate discharge to home tomorrow, 08/30/2017 Discharge summary: [id number] (2) Vacuum extractor delivery, delivered Impression: 31 yo S/p VAVD 08/26/2017 Normal recovery Anticipate discharge to home tomorrow, 08/30/2017 (3) Fourth degree perineal laceration during delivery Impression: S/p 4th degree perineal laceration with shoulder dystocia and VAVD Normal recovery S/p BM today Continue current care. Recommend stool softeners
[2017-08-30] MEDS: oxyCODONE 5 MG TABLET PO SCH ×5 (01:40→14:40)
[2017-08-30] MEDS: ACETAMINOPHEN 500 MG TABLET PO SCH ×2 (05:25→14:04)
--- NOTE | 2017-08-30 06:51 | DISCHARGE SUMMARY ---
Physician: Flori Angulo DO FACOG DATE OF ADMISSION: 08/26/2017 DATE OF DISCHARGE: 08/30/2017 DIAGNOSES ON ADMISSION 1. A 31-year-old -0-1-0, with a 38-6/7-week intrauterine . 2. Active labor. 3. GBS positive. DIAGNOSES ON DISCHARGE 1. 31-year-old G2, P1-0-1-1, status post vacuum-assisted vaginal delivery on 08/27/2017. 2. Status post shoulder dystocia on 08/27/2017. 3. Status post repair of fourth-degree midline laceration on 08/27/2017. 4. Status post primary hemorrhage on 08/27/2017. 5. Status post status post IV transfusion on 08/27/2017. 6. Status post transfusion of 3 units of packed red blood cells on 2017. HISTORY OF PRESENT ILLNESS: This is a patient of [facility], who presented to the hospital on 08/26/2017 with complaints of contractions. Patient was found to be in active labor at 5 cm dilation, 100% effacement and -1 station. Patient was admitted to the hospital, started penicillin for GBS chemoprophylaxis. She did receive an epidural for pain control. The patient got to complete and pushed. Due to maternal exhaustion, a vacuum- assisted vaginal delivery was performed. After the head was delivered, there was a less than 1 minute shoulder dystocia that ultimately was resolved with suprapubic pressure. The placenta delivered easily and without complication. Upon examining the perineum, patient was found to have a fourth-degree perineal laceration in the midline. This was repaired by Dr. Stone. EBL at the time was 700 mL. A viable male namedCristian, weight 3217 grams or 7 pounds 1.4 ounces. Apgars were 7 and 9 at 1 and 5 minutes, respectively. Given the large EBL at the time of delivery, the patient was prophylactically given a transfusion of iron on 08/27/2017. A CBC was repeated and showed a significant drop in her H and H. Her admission H and H was 13.5 and 40.4 on 08/26/2017. Her repeat H and H on had dropped to 5.7 and 17.2. The patient was then given a transfusion of 3 units of packed red blood cells. The patient had initial appropriate rise in her H and H on to 8.9 and 26.4 after the transfusion. It continued to stabilize, 08/29/2017 at 8.6 and 25.2. The patient has had a normal recovery despite her eventful delivery. Currently she is ambulating and tolerating a regular diet. Her pain is controlled, and actually she is requiring less oxycodone. She is urinating without difficulty, and she is having normal lochia. We will anticipate sending the patient home on 08/30/2017. Prescriptions for ibuprofen, Tylenol, Colace and Proctofoam have already been faxed to [facility] in [place], [place]. A handwritten prescription for oxycodone is ready for patient when she is discharged to home. We will expect to see the patient at [facility] for followup in 1 week, 3 weeks, and 8 weeks. I have stressed that she needs to be aggressive on pain control with her primary for her medications being NSAIDs and acetaminophen. I also recommended her to be aggressive on using stool softeners at this time until the 4th degree repair has finally recovered. The patient is to call should she have any worsening fever, chills, abdominal pain or vaginal bleeding. We will go ahead and discuss contraception in her visits. I have already discussed with the patient that, given her significant traumatic vaginal delivery, delivery may be in her best interest should she decide to have more children in the future. TD: 08/29/2017 14:53 Revised - delivery dates 08/27 Orig. signed 08/30/2017 @ 0901 corrections done 09/02/2017 arden MAYUR
--- NOTE | 2017-08-30 08:55 | PROVIDER PROGRESS NOTE ---
"Subjective - Prog Note Date Prog Note Date: 08/30/17 Prog Note Time: 08:53 - Subjective Pt reports feeling: Improved Subjective: Patient lying in bed. Doing SNS with baby and helping at bedside. Feeling even better today. Feeling OK to go home today. Pain improving. Objective - Vital Signs/Intake & Output Reviewed Vital Signs: Yes Vital Signs: Vital Signs x48h Temp Pulse Resp BP Pulse Ox 08/30/17 03:58 98.6 F 97 16 130/77 99 Intake & Output: Intake & Output 08/27/17 08/28/17 08/29/17 08/30/17 23:59 23:59 23:59 23:59 Intake Total 3472.5 3334 1100 Output Total 1771 3899 1820 Balance 1697.5 -5741 -725 - Objective General Appearance: positive: No acute distress Eyes Bilateral: positive: Normal inspection Abdomen: positive: Non-tender Extremities: positive: Non-tender, No pedal edema Neurologic/Psychiatric: positive: Oriented x3 - Lab Results Fish Bones: 08/29/17 07:57 Assessment/Plan - Problem List (1) hemorrhage Impression: 31 yo S/p primary PPH Continue current care Discharge to home today (2) Vacuum extractor delivery, delivered Impression: 31 yo S/p VAVD for maternal exhaustion 08/26/2017, PPD #4 Continue current care Discharge to home today Follow up in 1 week Rx for motrin, colace, oxycodone Call for worsening fevers, chills, abdominal pain or vaginal bleeding. (3) Fourth degree perineal laceration during delivery Impression: S/p repair of 4th degree midline laceration Continue stool softeners and Proctofoam PRN Discharge Summary Admit Date: 08/26/17 Discharge Date: 08/30/17 Discharging Provider: Flori Angulo DO FACOG Code Status: Attempt Resuscitation Condition at Discharge: Good Discharge Disposition: 01 Home, Self Care Discharge Facility Name: [facility] - DIAGNOSES Admission Diagnoses: Active labor Discharge Diagnoses with Status of Each Condition: S/p VAVD S/p 4th degree laceration S/p primary PPH - ALLERGIES Allergies/Adverse Reactions: Allergies Allergy/AdvReac Type Severity Reaction Status Date / Time No Known Drug Allergies Allergy Verified 08/26/17 19:54 - MEDICATIONS Home Medications Other | Comments: Motrin, colace, tylenol, oxycodone, proctofoam - LABS Result Diagrams: 08/29/17 07:57 - FOLLOW UP Follow Up: 1 week - TIME SPENT Time Spent in Discharge (Minutes): 15"
[2017-08-30] MEDS: DOCUSATE SODIUM 100 MG CAPSULE PO SCH (09:22)
[2017-08-30] MEDS: CELECOXIB 100 MG CAPSULE PO SCH (09:22)
[2017-08-30] MEDS: SODIUM CHLORIDE FLUSH 0.9% 10 ML SYRINGE IVP SCH ×2 (11:51→11:52)
--- NOTE | 2017-08-30 11:56 | Discharge Plan ---
Discharge Plan Disposition: 01 Home, Self Care Condition: Good Diet: Regular (High Fiber) Activity Restrictions: Activity as Tolerated Shower Restrictions: No Driving Restrictions: No Weight Bearing: Full Weight Instruction Topics: Labor, ED Labor False, ED Labor Premature No Smoking: If you smoke, Please STOP! Call for help. Follow-up with: Silas Stone MD [Provider Admit Priv/Credential] -
[2017-08-30 14:50] VITALS: BP 107/78
--- NOTE | 2017-08-30 17:05 | Labor Flowsheet ---
Labor Flowsheet Datetime Report Generated by CPN: 08/30/2017 17:05 Datetime: 08/30/2017 12:34 VITAL SIGNS NBP Sys/Marianela/Mean (mmHg): 107 : 78 : 84 Pulse: 98 SpO2 (%): 99 LaborFlag: Labor Datetime: 08/28/2017 20:16 Respirations: 18 Temperature (C): 37.0 Temperature Route: Oral Vital Sign Comments: Pt color pink, Cap refill< 3 secs. Pt reports feeling rested and much better, no Headache or dizziness, or nausea. Datetime: 08/27/2017 15:24 Patient Care Comments: 250cc urine Datetime: 08/27/2017 15:23 Epidural Procedure Other: Cath Removed; Cath Intact Datetime: 08/27/2017 14:28 Membranes Ruptured Date/Time: 08/27/2017 04:48 Amniotic Fluid Odor: Normal Datetime: 08/27/2017 11:20 PATIENT CARE IV/Blood Work: New IV Bag Hung Datetime: 08/27/2017 11:19 I/O Interventions: Leal Cath Inserted Datetime: 08/27/2017 10:30 Medication Comments: Nitrous Oxided stopped Datetime: 08/27/2017 10:07 Communication Comments: mely Urbanna @BS Datetime: 08/27/2017 09:59 UTERINE ACTIVITY Monitor Mode: Internal Frequency (min): 2-3 Quality: Strong Duration (sec): 60-80 Pattern: Normal: <= 5 Contractions in 10 Minutes Resting Tone (Palpate): Relaxed Resting Tone IUP (mmHg): 20 Intensity IUP (mmHg): 100+ [place] Units (mmHg): 290 ASSESSMENT A Monitor Mode: External US FHR Baseline Changes: No Baseline Change Variability: Moderate 6-25 bpm Accelerations: 15X15 Decelerations: None Category: Category I Comments: NRB off Oxygen Method: Room Air Datetime: 08/27/2017 09:37 MEDICATIONS Pitocin (milliunits): Increased to @ 5 Datetime: 08/27/2017 09:35 Oxygen Amount (LPM): 10 Datetime: 08/27/2017 09:30 Contraction Comments: pushing Datetime: 08/27/2017 08:11 TEACHING Instructional Method: Verbal Plan of Care: Plan of Care Discussed; Vaginal Delivery Labor/Induction: Labor Stages; Activity; Pushing Methods Datetime: 08/27/2017 08:04 Anesthesia Comments: Epidural turned off per Dr. Stone Datetime: 08/27/2017 08:03 VAGINAL EXAM Dilatation (cm): 10.0 Effacement (%): 100 Station: 3 Exam by: Dr. Stone Datetime: 08/27/2017 08:00 FHR Baseline Rate : 120 Datetime: 08/27/2017 07:51 Patient Position/Activity: Left Tilt Anesthesia Level Check: T11 Datetime: 08/27/2017 07:39 Pain Management: PRN Medications Datetime: 08/27/2017 07:37 Breath Sounds, Left: Clear and Equal Breath Sounds, Right: Clear and Equal Datetime: 08/27/2017 07:33 MATERNAL ASSESSMENT Level of Consciousness: Fully Conscious Headache: Denies Nausea/Vomiting: Denies RUQ Epigastric Pain: Denies Datetime: 08/27/2017 07:00 Pitocin Checklist: At Least 1 Acceleration of 15 bpm x 15 Seconds in 30 Minutes or Adequate Variabi lity; No More than 2 Variable Decelerations > 60 Seconds in Duration and decreasing >60 bpm in 30 min utes; No More than 5 Uterine Contractions in 10 Minutes for any 20 Minute Interval; Uterus Palpates S oft between Contractions; IUPC Resting Tone less than 25 mmHg Monitor Interventions for FHR: Ultrasound Adjusted Datetime: 08/27/2017 06:52 Vaginal Exam Comments: "rim" Datetime: 08/27/2017 06:37 PAIN Pain Presence: None/Denies Pain Coping: Sleeping Datetime: 08/27/2017 05:35 Pain Type: Contraction Pain Location: Abdomen Pain Assessment Comments: pt can feel ctx pressure, pushed Epidural button Datetime: 08/27/2017 04:48 Monitor Interventions for UA: IUPC Inserted Membrane Status: Ruptured Membranes Rupture Method: Artificial Amniotic Fluid Color: Clear Amniotic Fluid Amount: Moderate Vaginal Bleeding: Normal Show Cervix, Consistency: Soft Membrane Comments: Forebag ruptured w/ vag exam by Dr. Stone Datetime: 08/27/2017 04:26 Stage of : Labor COMMUNICATION Communication: Call/Page Placed to Provider Provider Notified (Name): Dr. Stone Notification Reason: Labor Status; Membrane Status Datetime: 08/27/2017 04:12 Hygiene: Underpad Changed Datetime: 08/27/2017 04:05 Nitrazine: Positive Datetime: 08/26/2017 19:37 Epidural Procedure: Test Dose Datetime: 08/26/2017 19:25 PROCEDURE TIME OUT Procedure Verify: Correct Patient Identity; Correct Side and Site are Marked; Accurate Procedure Co nsent Form; Agreement on Procedure to be Done; Correct Patient Position; Safety Precautions Based on Patient History or Medication Use ANESTHESIA Anesthesia Plans: Epidural Epidural Positioning: Sitting
== END 2017-08-30 14:00 | disposition home or self-care (01) | DRG 774 ==
LOC: WFO 10:55 → FBP 10:56 → WFO 18:21 → FBP 18:22
PROVIDERS: ADMIT Obstetrics & Gynecology; ATTEND Obstetrics & Gynecology
PROC: 10D07Z6 Extraction of Products of Conception, Vacuum, Via Natural or Artificial Opening (ICD-10-PCS; principal; 2017-08-27)
PROC: 0DQP0ZZ Repair Rectum, Open Approach (ICD-10-PCS; 2017-08-27)
PROC: 10H07YZ Insertion of Other Device into Products of Conception, Via Natural or Artificial Opening (ICD-10-PCS; 2017-08-27)
PROC: 30233N1 Transfusion of Nonautologous Red Blood Cells into Peripheral Vein, Percutaneous Approach (ICD-10-PCS; 2017-08-28)
DX: O99.824 Streptococcus B carrier state complicating childbirth (principal); O72.1 Other immediate postpartum hemorrhage; Z3A.38 38 weeks gestation of pregnancy; Z37.0 Single live birth; O66.0 Obstructed labor due to shoulder dystocia; O75.81 Maternal exhaustion complicating labor and delivery; O70.3 Fourth degree perineal laceration during delivery; O69.81X0 Labor and delivery complicated by cord around neck, without compression, not applicable or unspecified; O76 Abnormality in fetal heart rate and rhythm complicating labor and delivery; O63.0 Prolonged first stage (of labor); O90.89 Other complications of the puerperium, not elsewhere classified; M79.651 Pain in right thigh
CPT/HCPCS: 36415; 85025; 86850; 86900; 86901; 86920; 99212

== ENCOUNTER 2018-10-04 16:20 | Outpatient (CLI) | payer BC ==
--- NOTE | 2018-10-05 10:04 | XRAY Report ---
Reason: PAIN LEFT FOOT Procedure Date: 10/04/2018 Accession Number: [id number] / [id number] Procedure: XR - Foot 3 View LT CPT Code: FULL RESULT: EXAM: LEFT FOOT RADIOGRAPHY EXAM DATE: 10/04/2018 04:30 PM. CLINICAL HISTORY: PAIN LEFT FOOT. COMPARISON: None. TECHNIQUE: 3 views. FINDINGS: Bones: There is a predominantly transverse fracture of the base of the fifth metatarsal, without significant displacement. No other fractures or bone lesions. Joints: Normal. No subluxations. Soft Tissues: Normal. No soft tissue swelling. IMPRESSION: Fracture of the base of the fifth metatarsal, without significant displacement. RADIA
== END 2018-10-04 16:21 | disposition home or self-care (01) ==
LOC: DI 16:20
PROVIDERS: ATTEND Internal Medicine
DX: S92.355A Nondisplaced fracture of fifth metatarsal bone, left foot, initial encounter for closed fracture (principal)

== ENCOUNTER 2019-10-30 07:50 | Outpatient (CLI) | payer BC ==
[2019-10-30 16:08] LABS: BASOPHILS % (AUTO) 0.6 %; EOSINOPHILS # (AUTO) 0.1 10^3/uL (0.0-0.7); EOSINOPHILS % (AUTO) 2.2 %; HGB - HEMOGLOBIN 13.2 g/dL (12.0-16.0); LYMPHOCYTES # (AUTO) 1.7 10^3/uL (1.5-3.5); LYMPHOCYTES % (AUTO) 34.5 %; MEAN CORPUSCULAR HEMOGLOBIN 29.7 pg (27.0-31.0); MEAN CORPUSCULAR HGB CONC 33.1 g/dL (32.0-36.0); MEAN CORPUSCULAR VOLUME 89.7 fL (81.0-99.0); MEAN PLATELET VOLUME 11.1 fL (7.9-10.8); MONOCYTES # (AUTO) 0.5 10^3/uL (0.0-1.0); MONOCYTES % (AUTO) 9.3 %; NEUTROPHILS # (AUTO) 2.6 10^3/uL (1.5-6.6); PLT - PLATELET COUNT 293 10^3/uL (130-450); RED BLOOD COUNT 4.45 10^6/uL (4.20-5.40); RED CELL DISTRIBUTION WIDTH 12.9 % (12.0-15.0)
[2019-10-30 16:43] LABS: ALBUMIN 4.2 g/dL (3.2-5.5); ALBUMIN/GLOBULIN RATIO 1.6 (1.0-2.2); CALCIUM 8.9 mg/dL (8.5-10.3); CREATININE 0.6 mg/dL (0.4-1.0); TOTAL PROTEIN 6.8 g/dL (6.7-8.2)
== END 2019-10-30 07:51 | disposition home or self-care (01) ==
LOC: LAB.S 07:50
PROVIDERS: ATTEND Registered Nurse
DX: Z13.228 Encounter for screening for other metabolic disorders (principal); Z13.29 Encounter for screening for other suspected endocrine disorder; Z13.0 Encounter for screening for diseases of the blood and blood-forming organs and certain disorders involving the immune mechanism
CPT/HCPCS: 36415; 80053; 84443; 85025

== ENCOUNTER 2023-05-10 07:34 | Outpatient (CLI) | payer BC ==
[2023-05-10 14:49] LABS: BASOPHILS % (AUTO) 0.8 %; EOSINOPHILS # (AUTO) 0.1 10^3/uL (0.0-0.7); EOSINOPHILS % (AUTO) 2.8 %; HGB - HEMOGLOBIN 12.7 g/dL (12.0-16.0); LYMPHOCYTES # (AUTO) 1.9 10^3/uL (1.5-3.5); LYMPHOCYTES % (AUTO) 38.1 %; MEAN CORPUSCULAR HEMOGLOBIN 29.4 pg (27.0-31.0); MEAN CORPUSCULAR HGB CONC 32.6 g/dL (32.0-36.0); MEAN CORPUSCULAR VOLUME 90.3 fL (81.0-99.0); MEAN PLATELET VOLUME 10.7 fL (7.9-10.8); MONOCYTES # (AUTO) 0.4 10^3/uL (0.0-1.0); MONOCYTES % (AUTO) 8.9 %; NEUTROPHILS # (AUTO) 2.4 10^3/uL (1.5-6.6); PLT - PLATELET COUNT 261 10^3/uL (130-450); RED BLOOD COUNT 4.32 10^6/uL (4.20-5.40); RED CELL DISTRIBUTION WIDTH 12.4 % (12.0-15.0); WHITE BLOOD COUNT 4.9 x10^3/uL (4.8-10.8)
[2023-05-10 15:05] LABS: ALBUMIN 4.4 g/dL (3.2-5.5); ALKALINE PHOSPHATASE 37 IU/L (42-121); ALT ALANINE AMINOTRANSFERASE 12 IU/L (10-60); AST ASPARTATE AMINOTRANSFERASE 13 IU/L (10-42); BILIRUBIN,TOTAL 0.7 mg/dL (0.2-1.0); BUN - BLOOD UREA NITROGEN 10 mg/dL (6-20); CARBON DIOXIDE - CO2 30 mmol/L (21-32); CHLORIDE 102 mmol/L (101-111); CHOL/HDL RATIO 2.3 (<4.4); CHOLESTEROL 147 mg/dL; CREATININE 0.6 mg/dL (0.6-1.3); GFR - MDRD 113 (>89); GLUCOSE 93 mg/dL (74-104); HDL CHOLESTEROL 64 mg/dL; LDL CHOLESTEROL,CALCULATED 70 mg/dL; LDL/HDL RATIO 1.1 (<4.4); SODIUM 135 mmol/L (135-145); TOTAL PROTEIN 6.6 g/dL (6.4-8.9); TRIGLYCERIDES 64 mg/dL (48-352); VLDL CHOLESTEROL 13 mg/dL
[2023-05-10 15:18] LABS: THYROID STIMULATING HORMONE 1.93 uIU/mL (0.34-5.60)
== END 2023-05-10 07:35 | disposition home or self-care (01) ==
LOC: LAB.S 07:34
PROVIDERS: ATTEND Physician Assistant Medical
DX: Z00.00 Encounter for general adult medical examination without abnormal findings (principal); R13.10 Dysphagia, unspecified
CPT/HCPCS: 36415; 80053; 80061; 83721; 84443; 85025